=== PATIENT | female | born 1960 | race Two or more races ===

== ENCOUNTER 2018-09-14 10:58 | Emergency (ER) | payer SELFPAY ==
[~2018-09-14] VITALS: Ht 154.9 cm; Wt 57.2 kg
--- NOTE | 2018-09-14 12:04 | RAD ---
Single view of the chest. 09/14/2018 11:39 AM Indication: FALL,BACK PAIN Comparison: None available Findings: There is no focal consolidation. There is no pleural effusion or pneumothorax. The cardiomediastinal silhouette and pulmonary vasculature are within normal limits. No acute osseous abnormalities are seen. Impression: No evidence of acute cardiopulmonary process. Electronically signed by: Dangelo Byrnes MD (09/14/2018 11:59 AM) [id number]
--- NOTE | 2018-09-14 12:34 | RAD ---
PQRS Compliance Statement: One or more of the following individualized dose reduction techniques were utilized for this examination: 1. Automated exposure control 2. Adjustment of the mA and/or kV according to patient size 3. Use of iterative reconstruction technique CT THORACIC SPINE WO CONTRAST Clinical Indication: FALL BACK PAIN Comparison: None. TECHNIQUE: Helical CT imaging of the thoracic spine is performed without IV contrast. Findings: There is no acute fracture in the thoracic spine. The vertebral body height and alignment are maintained. No high-grade narrowing of the central canal is identified. The facet joints are intact. No acute posterior rib abnormality. Mild bilateral dependent atelectasis. IMPRESSION: No acute fracture. Electronically signed by: Rohit Smith MD (09/14/2018 12:29 PM) [id number]
--- NOTE | 2018-09-14 12:52 | RAD ---
EXAM: Lumbar spine CT without contrast. HISTORY: Fall. Pain. TECHNIQUE: Computed tomographic images of the lumbar spine were obtained without contrast. Multiplanar reformatting was performed. *One or more of the following individualized dose reduction techniques were utilized for this examination: 1. Automated exposure control. 2. Adjustment of the mA and/or kV according to patient size. 3. Use of iterative reconstruction technique. COMPARISON: None. FINDINGS: There is no significant listhesis or scoliosis. The vertebral bernabe are normal in height and the disc spaces are preserved. There is no suspicious lytic or sclerotic osseous lesion. There is minimal anterior endplate remodeling predominantly along the superior aspect of L2. There is mild vacuum phenomenon involving the left greater than right sacroiliac joints. There are mild disc bulges at multiple lumbar levels. No significant foraminal or central canal stenosis is seen. IMPRESSION: No acute osseous finding or evidence of significant foraminal or central canal stenosis. Electronically signed by: Taylor Otero MD (09/14/2018 12:47 PM) [facility]
[2018-09-14 13:09] VITALS: BP 154/89
[2018-09-14] MEDS ORDERED: IBUPROFEN 600 MG TABLET. PO ONE (13:15)
[2018-09-14] MEDS ORDERED: IBUP-1007 PO (13:34)
[2018-09-14] MEDS ORDERED: CYCL5TAB PO (13:34)
--- NOTE | 2018-09-14 13:35 | PHYS DOC ---
Past Medical History Past Medical History: Hypothyroid Past Surgical History: Other Additional Past Surgical Histo: NOSE SURGERY FOR SINUS Alcohol Use: None Drug Use: None Adult General Chief Complaint Chief Complaint: MECHANICAL FALL HPI HPI Patient is a 58 year old F who presents with back pain after fall. Patient slipped on ice and fell directly onto her back. She has pain in the upper part of her back. She did not hit her head and she has no neck pain. She said a bystander helped her get into her car. She denies loss of consciousness, vomiting, abdominal pain, chest pain, shortness of breath. She has no other medical problems. She does not smoke, drink alcohol, or use any drugs. Review of Systems Review of Systems Constitutional: Denies fever or chills Eyes: Denies change in visual acuity, redness, or eye pain HENT: Denies nasal congestion or sore throat Respiratory: Denies cough or shortness of breath Cardiovascular: No additional information not addressed in HPI GI: Denies abdominal pain, nausea, vomiting, bloody stools or diarrhea : Denies dysuria or hematuria Musculoskeletal: Endorses back pain Integument: Denies rash or skin lesions Neurologic: Denies headache, focal weakness or sensory changes Endocrine: Denies polyuria or polydipsia All other systems were reviewed and found to be within normal limits, except as documented in this note. Current Medications Current Medications Current Medications Medications (Trade) Dose Ordered Sig/Neto Start Time Stop Time Status Last Admin Dose Admin Ibuprofen (Motrin) 600 mg 1X ONCE 09/14/18 13:15 09/14/18 13:16 DC Allergies Allergies Allergies Coded Allergies Type Severity Reaction Last Updated Verified No Known Drug Allergies 01/09/16 No Physical Exam Physical Exam Constitutional: Well developed, well nourished, no acute distress, non-toxic appearance. HENT: Normocephalic, atraumatic, bilateral external ears normal, oropharynx moist, no oral exudates, nose normal. Eyes: PERRL, EOMI, conjunctiva normal, no discharge. Neck: Normal range of motion, no tenderness, supple, no stridor. Cardiovascular:Heart rate regular rhythm, no murmur Lungs & Thorax: Bilateral breath sounds clear to auscultation Abdomen: Bowel sounds normal, soft, no tenderness, no masses, no pulsatile masses. Skin: Warm, dry, no erythema, no rash. Back: TTP low back muscles and mid back muscles. No cervical spine TTP, ROm without pain. Extremities: No tenderness, no cyanosis, no clubbing, ROM intact, no edema. Neurologic: Alert and oriented X 3, normal motor function, normal sensory function, no focal deficits noted. Psychologic: Affect normal, judgement normal, mood normal. Current Patient Data Vital Signs Vital Signs Date Time Temp Pulse Resp B/P (MAP) Pulse Ox O2 Delivery O2 Flow Rate FiO2 09/14/18 11:30 98.1 63 19 184/100 (128) 99 Room Air 98.1 EKG EKG [] Radiology/Procedures Radiology/Procedures [] Course & Med Decision Making Course & Med Decision Making Pertinent Labs and Imaging studies reviewed. (See chart for details) 58 y/o F presents for back pain after falling on the ice. No signs of trauma on exam, she is gen well appearing. CTs and xrays neg for acute injury. Tx with motrin. DC home. Follow up with PMD. Discussed return precatuions. Dragon Disclaimer Dragon Disclaimer This electronic medical record was generated, in whole or in part, using a voice recognition dictation system. Departure Departure Impression: Primary Impression: Fall Disposition: HOME, SELF-CARE Condition: IMPROVED Referrals: MADHU OLIVAREZ MD (PCP) Patient Instructions: Back Pain in Scripts Ibuprofen (IBUPROFEN) 600 Mg Tablet 600 MG PO PRN Q6HRS PRN for PAIN for 7 Days, #20 TAB take with food or milk Prov: NAV DAVID MD 09/14/18 Cyclobenzaprine Hcl (CYCLOBENZAPRINE HCL) 5 Mg Tablet 5 MG PO PRN TID PRN for BREAKTHROUGH PAIN for 7 Days, #15 TAB Prov: NAV DAVID MD 09/14/18 Problem Qualifiers Primary Impression: Fall Encounter type: initial encounter Qualified Codes: W19.XXXA - Unspecified fall, initial encounter NAV DAVID MD Sep 14, 2018 13:35
== END 2018-09-14 14:00 | disposition home or self-care (01) ==
LOC: ER 10:58
DX: M54.6 Pain in thoracic spine (principal); M54.5 Low back pain; E03.9 Hypothyroidism, unspecified; W00.0XXA Fall on same level due to ice and snow, initial encounter; Y93.89 Activity, other specified; Y92.89 Other specified places as the place of occurrence of the external cause; Y99.8 Other external cause status
CPT/HCPCS: 71045; 72128; 72131; 99284